=== PATIENT | male | born 1945 | race Caucasian/White ===

== ENCOUNTER → 2020-01-23 09:19 | Outpatient (BNVA) | payer MEDICARE, OTHER, SELFPAY | PROVIDERS: PCP Family Medicine; Referring Provider Family Medicine; Visit Provider Urology | DX: N52.9 Male erectile dysfunction, unspecified (principal); N40.1 Benign prostatic hyperplasia with lower urinary tract symptoms; N13.8 Other obstructive and reflux uropathy; R35.1 Nocturia; Z79.899 Other long term (current) drug therapy | CPT/HCPCS: 99212 ==

== ENCOUNTER → 2020-08-13 15:33 | Outpatient (BNVA) | payer MEDICARE, OTHER, SELFPAY | PROVIDERS: PCP Family Medicine; Visit Provider Urology | DX: Z13.89 Encounter for screening for other disorder (principal) | CPT/HCPCS: 99212 ==

== ENCOUNTER 2020-10-28 06:12 | Day surgery (SDC) | payer MEDICARE, OTHER, SELFPAY ==
[2020-10-18 10:52] VITALS: BMI 42.8
--- NOTE | 2020-10-22 11:40 | HO.ANESPROP2 ---
Documented by User: Odette Mckay NP 10/22/20 11:44 HPI - Anesthesia Eval Consult details Narrative: 75yo M for Laser Ablation Prostate w/Green Light Stable at routine cardiac visit 10/21/20. Xarelto for afib. OK to hold per cardiology [facility] Active Problems Active Problems: All Active Problems (Updated 10/18/20 @ 11:28 by Ellie Cisneros) BPH w urinary obs/LUTS (Acute) Nocturia more than twice per night (Acute) Erectile dysfunction (Acute) Past Medical History Medical History (Updated 10/18/20 @ 11:28 by Ellie Cisneros) Arthritis Atrial fibrillation Back pain BPH (benign prostatic hyperplasia) CKD (chronic kidney disease) COVID-19 vaccine series completed Diabetes mellitus Elevated cholesterol Glaucoma HTN (hypertension) Insomnia On anticoagulant therapy Skin cancer Surgical History Surgical History History of bilateral total hip arthroplasty History of right knee surgery History of umbilical hernia repair Hx of cholecystectomy Hx of colonoscopy Social History Social History Are you a primary child care attendant to a significant other at home: No Do you presently have visiting nurse or other home services: No Patient Tobacco Use Status: Never used Tobacco Use of substances other than those prescribed or required for medical reasons: No Have you been hit, kicked, punched, or otherwise hurt by someone within the past year? If so, by whom?: No Are you DNR?: No Advance Directives: No Advance Directives Information Provided: No Advance Directives on File: No Recently lost weight without trying: No Eating poorly because of decreased appetite: No Nutrition Risks: No Nutritional Risk Meds Allergies Allergy/AdvReac Type Severity Reaction Status Date / Time Hytrin Allergy Mild Abdominal Uncoded 10/18/20 10:45 Pain Home Medications Medication Instructions Recorded Confirmed Last Taken Type diltiazem HCl 240 mg 240 mg PO DAILY 01/23/20 10/18/20 10/28/20 History capsule,extended release 24 hr flu vacc [id number](65yr up)-PF 240 ml IM 01/23/20 01/23/20 Unknown History mcg/0.7 mL intramuscular syringe hydrochlorothiazide 25 mg tablet 25 mg PO DAILY 01/23/20 10/18/20 Unknown History ketorolac 0.5 % eye drops 1 drp OPHTHALMIC (EYE) TID 01/23/20 10/18/20 Unknown History lisinopril 40 mg tablet 40 mg PO DAILY 01/23/20 10/18/20 Unknown History rivaroxaban 20 mg tablet 20 mg PO BEDTIME 01/23/20 10/18/20 10/25/20 History timolol maleate 0.5 % eye drops drp OPHTHALMIC (EYE) 01/23/20 01/23/20 Unknown History zolpidem 12.5 mg tablet,extended 12.5 mg PO BEDTIME PRN 01/23/20 10/18/20 Unknown History release,multiphase latanoprost 0.005 % eye drops 1 drp OPHTHALMIC (EYE) ml 08/13/20 Unknown History pravastatin 20 mg tablet 20 mg PO BEDTIME 08/13/20 10/18/20 Unknown History cholecalciferol (vitamin D3) 25 25 mcg PO DAILY 10/18/20 10/18/20 Unknown History mcg (1,000 unit) tablet (Vitamin D3) metformin 500 mg tablet,extended 1 tab PO DAILY 10/18/20 10/18/20 Unknown History release 24 hr Exam Exam Date and Time: October 22, 2020 1140 Height,Weight and Vital Signs: Height 5 ft 9 in Weight 131.542 kg Narrative Narrative: EKG 10/21/20 Afib @ 81 with chronic RBBB Unchanged from 05/2020 ECHO 04/2020 LVEF 60-65%, Trace aortic insufficiency, Trace 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 Ascending aorta @ 4.0cm Assessment and Plan Assessment Anesthesia Assessment: Chart Reviewed Documented by User: Mary Anne Presley MD 10/28/20 07:28 [facility] Past Medical History Medical History (Updated 10/18/20 @ 11:28 by Ellie Cisneros) Arthritis Atrial fibrillation Back pain BPH (benign prostatic hyperplasia) CKD (chronic kidney disease) COVID-19 vaccine series completed Diabetes mellitus Elevated cholesterol Glaucoma HTN (hypertension) Insomnia On anticoagulant therapy Skin cancer Functional capacity: independent ambulation Family History Family history of problems with anesthesia: No Surgical History Surgical History History of bilateral total hip arthroplasty History of right knee surgery History of umbilical hernia repair Hx of cholecystectomy Hx of colonoscopy History of Problems with Anesthesia: No Social History Social History Are you a primary child care attendant to a significant other at home: No Do you presently have visiting nurse or other home services: No Patient Tobacco Use Status: Never used Tobacco Use of substances other than those prescribed or required for medical reasons: No Have you been hit, kicked, punched, or otherwise hurt by someone within the past year? If so, by whom?: No Are you DNR?: No Advance Directives: No Advance Directives Information Provided: No Advance Directives on File: No Recently lost weight without trying: No Eating poorly because of decreased appetite: No Nutrition Risks: No Nutritional Risk Meds Allergies Allergy/AdvReac Type Severity Reaction Status Date / Time Hytrin Allergy Mild Abdominal Uncoded 10/18/20 10:45 Pain Home Medications Medication Instructions Recorded Confirmed Last Taken Type diltiazem HCl 240 mg 240 mg PO DAILY 01/23/20 10/18/20 10/28/20 History capsule,extended release 24 hr flu vacc [id number](65yr up)-PF 240 ml IM 01/23/20 01/23/20 Unknown History mcg/0.7 mL intramuscular syringe hydrochlorothiazide 25 mg tablet 25 mg PO DAILY 01/23/20 10/18/20 Unknown History ketorolac 0.5 % eye drops 1 drp OPHTHALMIC (EYE) TID 01/23/20 10/18/20 Unknown History lisinopril 40 mg tablet 40 mg PO DAILY 01/23/20 10/18/20 Unknown History rivaroxaban 20 mg tablet 20 mg PO BEDTIME 01/23/20 10/18/20 10/25/20 History timolol maleate 0.5 % eye drops drp OPHTHALMIC (EYE) 01/23/20 01/23/20 Unknown History zolpidem 12.5 mg tablet,extended 12.5 mg PO BEDTIME PRN 01/23/20 10/18/20 Unknown History release,multiphase latanoprost 0.005 % eye drops 1 drp OPHTHALMIC (EYE) ml 08/13/20 Unknown History pravastatin 20 mg tablet 20 mg PO BEDTIME 08/13/20 10/18/20 Unknown History cholecalciferol (vitamin D3) 25 25 mcg PO DAILY 10/18/20 10/18/20 Unknown History mcg (1,000 unit) tablet (Vitamin D3) metformin 500 mg tablet,extended 1 tab PO DAILY 10/18/20 10/18/20 Unknown History release 24 hr Exam Airway TM Dist: >3cm Neck ROM: Full Heart: Irregular Lungs: CTA Assessment and Plan Final Anesthetic Review Family History of Problems with Anesthesia: No History of Problems with Anesthesia: No
[2020-10-28 06:26] VITALS: BP 146/78; PULSE 84; RESP 18; TEMP 36.6; O2SAT 97
[2020-10-28] MEDS: Lactated Ringers 1,000 ML 100 ML IVCONT (06:51)
--- NOTE | 2020-10-28 07:28 | MHC.SHP ---
Pre-Procedural Eval Section A Date of Service: 10/28/20 Section B Chief Complaint: benign prostatic hyperplasia Details of Present Illness: GreenLight laser prostatectomy Relevant Social History: None Present Medications: see Short Stay Collaborative assessment Medical History: No relevant PMH History of Previous Operations: No relevant previous surgery Allergies: Allergies Allergy/AdvReac Type Severity Reaction Status Date / Time Hytrin Allergy Mild Abdominal Uncoded 10/18/20 10:45 Pain Review of Systems Sugical H&P ROS: Negative: Constitution, Cardiovascular, Respiratory, Neurological, Psychiatric, Hem-Onc, Allergic/Immunologic, Gastrointestinal, Genitourinary, Musculoskeletal, Integumentary, Endocrine and Eyes/Ears/Nose/Throat Exam Surgical H&P Exam: Normal: HEENT, Normal: Heart, Normal: Lungs, Normal: Extremities, Normal: Abdomen, Normal: Skin and Normal: Neurological Plan Diagnosis/Plan: Unchanged (GreenLight laser prostatectomy) I have reviewed the history and physical and performed a pertinent physical examination on my patient. No changes have occurred unless specified.
[2020-10-28] MEDS: levoFLOXacin/D5W 500 MG/100 ML PIGGYBACK 100 MG IV (07:35)
[2020-10-28 07:51] LABS: Glucose, Whole Blood 140 mg/dL (60-115)
--- NOTE | 2020-10-28 08:43 | P.OP_ITS ---
Operative Note Operative Note Date of Service: 10/28/20 Narrative: PreOperative Diagnosis: Bladder outlet obstruction Post Operative Diagnosis: Bladder outlet obstruction Procedure: GreenLight laser enucleation of the prostate Surgeon: Dr Davy Coulter Anesthesia: General Indications for procedure: History of bladder outlet obstruction. Treated with alpha-seb and other medications. Still with symptoms. Recommendation for prostate procedure with laser enucleation of prostate. Focus was placed on development of retrograde examination which is a normal part of this procedure. Procedure: After informed consent was verified the patient was brought to the operating room and placed in a supine position. Anesthesia was administered per protocol. Patient was placed in modified dorsal lithotomy position and prepped and draped in a sterile fashion. Safety pause time-out was confirmed. Antibiotics have been given. Twenty-four Amharic laser cystoscope was inserted per urethra. No abnormalities found the anterior posterior urethra. The bladder was filled on both ureteric orifices were seen in normal position away from our area of interest. Using a GreenLight laser settings of 80 w incisions were made at the 5 and 7 o'clock position. They were taken down and then laterally on each side. They were brought from the bladder neck down to the level of the veru. These defined the lateral aspects of the median lobe area. The median lobe was ablated and enucleated tissue removed. Once the median lobe area had been cleaned attention was directed to the lateral lobes. We started with the patient's left lateral lobe. Firstly the 05:00 o'clock groove was further developed. This was moved in the lateral position to undermine the tissue on the lateral side. Focus was then placed on the laser at the 1 o'clock position in developing a secondary groove down to the level of bladder fibers. The intervening tissue between these 2 grooves was removed with a combination of enucleation ablation working from the apex toward the bladder neck. A similar procedure was repeated on the patient's right-hand side. When this was completed debris and pieces of prostate removed from the bladder. Both ureteric orifices were reviewed again in shown to be patent in away from any areas of energy damage. The apical area was reviewed in any stray ooze was controlled. A 22 Amharic 30 cc balloon Lawson catheter was placed over stylet into the bladder. Clear efflux was obtained. 30 cc was placed in the balloon and gentle traction was placed. A snap was used to hold tension once the patient will be moved and transported. Once transportation its finish this novel be removed. A belladonna and opiate suppository was placed for postprocedure pain management. He tolerated procedure well was extubated in the operating and transferred in a stable condition to the recovery area. Total energy [id number], 24 min lasing time Pathology: Prostate tissue Drains: Lawson catheter
[2020-10-28 08:49] VITALS: BP 154/65; PULSE 81; RESP 14; TEMP 37; O2SAT 95
[2020-10-28 09:05] VITALS: BP 121/69; PULSE 81; RESP 16; O2SAT 95
[2020-10-28] MEDS: Phenazopyridine HCL 100 MG TABLET PO (09:05)
[2020-10-28 09:20] VITALS: BP 128/73; PULSE 78; RESP 16; TEMP 36.1; O2SAT 94
[2020-10-28 09:35] VITALS: BP 121/67; PULSE 70; RESP 16; O2SAT 96
[2020-10-28 09:47] VITALS: BP 131/55; PULSE 69; RESP 16; TEMP 36.1; O2SAT 95
== END 2020-10-28 10:10 | disposition home or self-care (01) ==
PROVIDERS: PCP Family Medicine; Visit Provider Urology
PROC: (CPT 52648; principal; 2020-10-28 07:30)
DX: N40.1 Benign prostatic hyperplasia with lower urinary tract symptoms (principal); N13.8 Other obstructive and reflux uropathy; E11.22 Type 2 diabetes mellitus with diabetic chronic kidney disease; I12.9 Hypertensive chronic kidney disease with stage 1 through stage 4 chronic kidney disease, or unspecified chronic kidney disease; N18.2 Chronic kidney disease, stage 2 (mild); Z79.84 Long term (current) use of oral hypoglycemic drugs; I48.21 Permanent atrial fibrillation; Z79.01 Long term (current) use of anticoagulants; E66.01 Morbid (severe) obesity due to excess calories
CPT/HCPCS: 52649; 82947; 88305; J0330; J1100; J1956; J2370; J2405; J3010

== ENCOUNTER → 2020-10-31 11:04 | Outpatient (BNVA) | payer MEDICARE, OTHER, SELFPAY | PROVIDERS: PCP Family Medicine; Visit Provider Urology | DX: N40.1 Benign prostatic hyperplasia with lower urinary tract symptoms (principal); N13.8 Other obstructive and reflux uropathy; R35.1 Nocturia; N52.9 Male erectile dysfunction, unspecified | CPT/HCPCS: 51700; 51798; 99212 ==

== ENCOUNTER → 2020-12-13 08:19 | Outpatient (BNVA) | payer MEDICARE, OTHER, SELFPAY | DX: N40.1 Benign prostatic hyperplasia with lower urinary tract symptoms (principal); N13.8 Other obstructive and reflux uropathy | CPT/HCPCS: 51798; 99212 ==

== ENCOUNTER → 2021-07-15 08:48 | Outpatient (BNVA) | payer MEDICARE, OTHER, SELFPAY | DX: N40.1 Benign prostatic hyperplasia with lower urinary tract symptoms (principal); N13.8 Other obstructive and reflux uropathy; N52.9 Male erectile dysfunction, unspecified | CPT/HCPCS: 51798; 99212 ==